=== PATIENT | male | born 1975 | race African-American/Black ===

== ENCOUNTER 2019-05-27 12:59 | Emergency (ER) | payer MEDICAID ==
[~2019-05-27] VITALS: Ht 177.8 cm; Wt 80.0 kg
[2019-05-27] MEDS ORDERED: HYDROCODONE/ACETAMINOPHEN 5/325MG TABLET PO ONE (15:45)
[2019-05-27 17:15] VITALS: BP 124/79
== END 2019-05-27 20:09 | disposition home or self-care (01) ==
LOC: ER 13:13
DX: S83.8X1A Sprain of other specified parts of right knee, initial encounter (principal); S20.212A Contusion of left front wall of thorax, initial encounter; M62.830 Muscle spasm of back; X58.XXXA Exposure to other specified factors, initial encounter; Y93.89 Activity, other specified; Y92.89 Other specified places as the place of occurrence of the external cause; Y99.8 Other external cause status
CPT/HCPCS: 71250; 73100; 73130; 73560; 74176; 99284

== ENCOUNTER 2021-09-01 05:50 | Emergency (ER) | payer MEDICAID ==
[~2021-09-01] VITALS: Ht 177.8 cm; Wt 84.0 kg
[2021-09-01 06:08] VITALS: BP 133/73
[2021-09-01] MEDS ORDERED: MAGNESIUM/ALUMINUM HYDROXIDE/SIMETHICONE 30ML UDC PO STA (06:50)
[2021-09-01] MEDS ORDERED: DICYCLOMINE 10 MG/5 ML ORAL SYR PO STA (06:50)
[2021-09-01] MEDS ORDERED: VISCOUS LIDOCAINE 2% 15 ML UDC PO STA (06:50)
== END 2021-09-01 08:07 | disposition left against medical advice (07) ==
LOC: ER 05:50
DX: R10.13 Epigastric pain (principal); R20.8 Other disturbances of skin sensation
CPT/HCPCS: 93005; 99283

== ENCOUNTER 2023-01-01 22:35 | Emergency (ER) | payer MEDICAID, OTHER ==
[~2023-01-01] VITALS: Ht 177.8 cm; Wt 76.3 kg
[2023-01-01 23:04] VITALS: BP 130/79; O2SAT 99
[2023-01-02] MEDS ORDERED: ACETAMINOPHEN 325MG TABLET PO STA (00:56)
[2023-01-02 01:14] LABS: BASOPHILS % 0.8 % (0.0-2.0); CHLORIDE 109 mEq/L (98-107); EOSINOPHILS % 12.8 % (0.0-5.0); HEMATOCRIT. 36.5 % (42.0-52.0); HEMOGLOBIN. 12.5 g/dL (14.0-18.0); INDEX HEMOLYSI 1 (1-3); INDEX ICTERIC 1 (1-4); INDEX LIPEMIC 1 (1-3); LYMPHOCYTES % 36.8 % (20.0-50.0); MEAN CORPUSCULAR HEMOGLOBIN 31.9 pg (28.0-32.0); MEAN CORPUSCULAR HGB CONC 34.2 g/dL (31.0-37.0); MEAN CORPUSCULAR VOLUME 93.2 fL (80.0-94.0); MEAN PLATELET VOLUME 7.3 fl (7.4-10.4); MONOCYTES % 9.7 % (2.0-8.0); NEUTROPHILS % 39.9 % (40.0-76.0); PLATELET 246 x1000/uL (130-400); POTASSIUM 4.6 mEq/L (3.5-5.1); RED BLOOD CELL COUNT 3.92 mill/uL (4.7-6.1); RED CELL DISTRIBUTION WIDTH 14.7 % (11.6-14.6); SODIUM 139 mEq/L (136-145); WHITE BLOOD COUNT 10.3 x1000/uL (4.5-11.0)
[2023-01-02 01:39] LABS: ALANINE AMINOTRANSFERASE 28 IU/L (13-61); ALBUMIN 3.9 g/dL (3.4-5.0); ASPARTATE AMINOTRANSFERASE 22 IU/L (15-37); BILIRUBIN TOTAL 0.3 mg/dL (0.1-1.0); CALCIUM 9.1 mg/dL (8.5-10.1); CARBON DIOXIDE 30 mEq/L (21-32); ETHANOL BLOOD < 10 mg/dL (-10); GLUCOSE 72 mg/dL (70-105); PROTEIN TOTAL 7.2 g/dL (6.0-8.3); UREA NITROGEN BLOOD 15 mg/dL (7-21)
[2023-01-02 03:24] LABS: CLARITY URINE CLEAR (CLEAR); COLOR URINE DARK YELLOW (YELLOW); GLUCOSE URINE NEGATIVE (NEGATIVE); KETONES URINE TRACE (NEGATIVE); LEUKOCYTE ESTERASE URINE NEGATIVE (NEGATIVE); NITRITE URINE NEGATIVE (NEGATIVE); OCCULT BLOOD URINE NEGATIVE (NEGATIVE); PH URINE 5.5 (4.5-8.0); PROTEIN URINE TRACE (NEGATIVE); SPECIFIC GRAVITY URINE 1.026 (1.005-1.030)
[2023-01-02] MEDS ORDERED: NAPR-681 PO (03:47)
[2023-01-02 04:05] LABS: *AMPHETAMINES SCREEN URINE NEGATIVE (NEGATIVE); *BARBITURATES SCREEN URINE NEGATIVE (NEGATIVE); *BENZODIAZEPINES SCREEN URINE NEGATIVE (NEGATIVE); *COCAINE SCREEN URINE PRESUMTIVE POSITIVE (NEGATIVE); CANNABINOID URINE SCREEN PRESUMTIVE POSITIVE (NEGATIVE); ECSTASY MDMA SCREEN URINE NEGATIVE (NEGATIVE); METHADONE URINE SCREEN NEGATIVE (NEGATIVE); OPIATES URINE SCREEN NEGATIVE (NEGATIVE); PHENCYCLIDINE URINE SCREEN NEGATIVE (NEGATIVE)
[2023-01-02 04:35] VITALS: PULSE 68; RESP 18; TEMP 98.3
[2023-01-02 07:50] LABS: BACTERIA URINE NONE SEEN; RBC URINE 0-2 /hpf (0-2); SQUAMOUS EPITHELIAL CELL URINE FEW /lpf (RARE/1+); WBC URINE 0-2 /hpf (0-2)
== END 2023-01-02 04:00 | disposition home or self-care (01) ==
LOC: ER 22:41
DX: R51.9 Headache, unspecified (principal); M25.512 Pain in left shoulder; M54.12 Radiculopathy, cervical region
CPT/HCPCS: 36415; 73030; 80053; 80305; 80320; 81003; 85025; 99284; G0480

== ENCOUNTER 2024-04-16 07:15 | Emergency (ER) | payer MEDICAID ==
[~2024-04-16] VITALS: Ht 180.3 cm; Wt 77.0 kg
[~2024-04-16 07:15] MED LIST: NAPR-681 PO
[2024-04-16 07:42] VITALS: BP 166/92; O2SAT 100
[2024-04-16] MEDS: ONDANSETRON HCL 4MG TABLET PO ONE (08:10)
[2024-04-16] MEDS: MECLIZINE 25MG TABLET PO ONE (08:10)
[2024-04-16 10:22] VITALS: PULSE 64; RESP 16; TEMP 36.94740; O2SAT 100
== END 2024-04-16 10:22 | disposition home or self-care (01) ==
LOC: ER 07:15
DX: S06.0XAA Concussion with loss of consciousness status unknown, initial encounter (principal); W22.8XXA Striking against or struck by other objects, initial encounter; Y93.89 Activity, other specified; Y92.89 Other specified places as the place of occurrence of the external cause; Y99.8 Other external cause status; Z88.0 Allergy status to penicillin
CPT/HCPCS: 99284; 70450; J8597; Q0162

== ENCOUNTER 2024-04-25 09:22 | Emergency (ER) | payer MEDICAID ==
[~2024-04-25] VITALS: Ht 175.3 cm; Wt 69.0 kg
[2024-04-25 09:27] VITALS: O2SAT 99
[2024-04-25] MEDS ORDERED: CEPH500C2 MT (10:08)
[2024-04-25 10:15] VITALS: BP 159/87; PULSE 68; RESP 18; TEMP 36.94740; O2SAT 99
== END 2024-04-25 10:17 | disposition home or self-care (01) ==
LOC: ER 09:22
DX: S01.81XD Laceration without foreign body of other part of head, subsequent encounter (principal); L08.9 Local infection of the skin and subcutaneous tissue, unspecified; Z88.0 Allergy status to penicillin; X58.XXXD Exposure to other specified factors, subsequent encounter
CPT/HCPCS: 99283; Z7610